=== PATIENT | male | born 1990 | race Caucasian/White ===

== ENCOUNTER 2018-04-30 09:31 | Emergency (ER) | payer OTHER ==
[2018-04-30] MEDS: KETOROLAC 60 MG/2 ML VIAL (J1885) IM (11:06)
== END 2018-04-30 11:37 | disposition home or self-care (01) ==
LOC: M ED 09:31
DX: M19.011 Primary osteoarthritis, right shoulder (principal); Z79.1 Long term (current) use of non-steroidal anti-inflammatories (NSAID)
CPT/HCPCS: J1885

== ENCOUNTER 2018-05-04 11:57 | Emergency (ER) | payer OTHER ==
[2018-05-04] MEDS: methylPREDNISolone INJ 125 MG/2 ML VIAL (J2930) IM (13:45)
== END 2018-05-04 13:59 | disposition home or self-care (01) ==
LOC: M ED 11:57
DX: M19.011 Primary osteoarthritis, right shoulder (principal); Z79.1 Long term (current) use of non-steroidal anti-inflammatories (NSAID)
CPT/HCPCS: J2930